=== PATIENT | male | born 1985 | race Two or more races ===

== ENCOUNTER 2016-07-15 23:50 | Emergency (ER) | payer SELFPAY ==
[2016-07-16] MEDS ORDERED: PREDNISONE 20 MG TABLET ONE (01:14)
[2016-07-16] MEDS ORDERED: CYCLOBENZAPRINE HCL 10 MG TABLET ONE (01:14)
[2016-07-16] MEDS ORDERED: IBUPROFEN 800 MG TABLET ONE ×2 (01:14→01:15)
== END 2016-07-16 01:37 | disposition home or self-care (01) ==
LOC: ED 23:50
DX: M54.2 Cervicalgia (principal); I10 Essential (primary) hypertension; Z79.899 Other long term (current) drug therapy
CPT/HCPCS: 99283 ×2; A9270 ×2; J7512

== ENCOUNTER 2016-07-22 18:57 | Emergency (ER) | payer SELFPAY ==
[2016-07-23] MEDS ORDERED: DIPHENHYDRAMINE HCL 50 MG/1 ML VIAL ONE (01:12)
[2016-07-23] MEDS ORDERED: ACETAMINOPHEN 325 MG TABLET ONE (01:12)
[2016-07-23] MEDS ORDERED: IBUPROFEN 600 MG TABLET ONE (01:12)
[2016-07-23] MEDS ORDERED: PROCHLORPERAZINE 5 MG/ML 2 ML VIAL ONE (01:12)
[2016-07-23] MEDS ORDERED: DEXAMETHASONE 4 MG TABLET ONE (01:13)
[2016-07-23] MEDS ORDERED: DIAZEPAM 5 MG/ML SYRINGE 2 ML ONE (01:13)
== END 2016-07-23 01:48 | disposition home or self-care (01) ==
LOC: ED 18:57
DX: R51 Headache (principal); I10 Essential (primary) hypertension
CPT/HCPCS: 99283 ×2; 96372 ×3; J1200; J0780; A9270 ×3; J3360